=== PATIENT | male | born 1960 | race Caucasian/White ===

== ENCOUNTER 2018-12-31 13:11 | Inpatient (IN) ==
[2018-12-31] MEDS: NS 1,000 ML IV SCH (17:55)
[2018-12-31] MEDS: LOVENOX SUBQ SCH (17:55)
[2018-12-31] MEDS: NORCO-5 PO PRN ×2 (17:55→22:58)
[2018-12-31] MEDS: GLUCOPHAGE PO SCH (17:55)
--- NOTE | 2018-12-31 18:35 | Diag Imaging Result Doc PS360 ---
CHEST-PORTABLE - 12/31/2018 INDICATION: non healing ulcer COMPARISON: 11/25/2016 FINDINGS: Lung volumes are low with bibasilar crowding. No infiltrates or edema. No pneumothorax or pleural effusion. Heart size is normal. IMPRESSION: No acute disease. Low lung volumes. Electronically signed by Farhad Helm 12/31/2018 6:33 PM
[2018-12-31] MEDS: ZOSYN 3.375 GM in NS 50 ML IV SCH ×2 (18:50→23:00)
[2018-12-31 19:08] LABS: AGAP 8; BUN 6 mg/dL (8-22); CALCIUM 8.5 mg/dL (8.8-10.2); CHLORIDE 94 mmol/L (98-107); COSMO 271; CREATININE 0.8 mg/dL (0.7-1.2); ESTIMATED GFR > 60; GLUCOSE 323 mg/dL (70-104); POTASSIUM 3.5 mmol/L (3.5-5.1); SODIUM 130 mmol/L (136-145); TCO2 28 mmol/L (25-35)
[2018-12-31 19:09] LABS: BASO# 0.07 X1000 (0.0-0.2); BASO% 0.7 % (0.0-0.8); EOS# 0.22 X1000 (0.0-0.7); EOS% 2.1 % (0.0-10.0); HEMATOCRIT 38.3 % (42.0-52.0); HEMOGLOBIN 12.4 g/dL (14.0-18.0); IMM GRAN# 0.04 X1000 (0.0-0.04); IMM GRAN% 0.4 % (0.0-0.5); LYMPH# 2.88 X1000 (1.2-3.4); LYMPH% 26.9 % (20.5-51.1); MCH 29.9 PG (27-31); MCHC 32.4 g/dL (33-37); MCV 92.3 FL (81-99); MONO# 0.76 X1000 (0.11-0.59); MONO% 7.1 % (1.7-9.3); MPV 9.4 FL (7.4-10.4); NEUT# 6.73 X1000 (1.4-6.5); NEUT% 62.8 % (42.2-75.2); PLT 352 X1000 (130-400); RBC 4.15 XMIL (4.7-6.1)
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
--- NOTE | 2018-12-31 19:57 | EKG Report ---
Test Performed on : 12/31/2018 6:00:38 PM Test Reason : non healing ulcer Blood Pressure : / mmHG Vent. Rate : 063 BPM Atrial Rate : 063 BPM P-R Int : 140 ms QRS Dur : 088 ms QT Int : 448 ms P-R-T Axes : 072 021 043 degrees QTc Int : 458 ms Sinus rhythm. with occasional premature ventricular complexes. Low voltage QRS Borderline ECG When compared with ECG of 25-NOV-2016 14:18, premature ventricular complexes. are now present Criteria for Septal infarct are no longer present Nonspecific T wave abnormality no longer evident in Anterolateral leads Unconfirmed Result
[2018-12-31] MEDS: HUMALOG SUBQ SCH (20:55)
[2019-01-01] MEDS: ZOSYN 3.375 GM in NS 50 ML IV SCH ×4 (04:46→22:26)
[2019-01-01] MEDS: PRILOSEC PO SCH ×2 (05:44→06:34)
[2019-01-01] MEDS: NS 1,000 ML IV SCH ×3 (06:18→22:26)
[2019-01-01] MEDS: HUMALOG SUBQ SCH ×4 (06:34→22:26)
[2019-01-01] MEDS ORDERED: INSULIN PEN NEEDLES ONE (06:52)
--- NOTE | 2019-01-01 07:15 | PROGRESS NOTE ---
DATE: 01/01/2019 SUBJECTIVE: Mr. Dickey admitted with nonhealing ulcer on the right leg with some infection around it and uncontrolled diabetes mellitus. The patient does have some chills and neuropathic pain in the feet. The patient has long-standing diabetes. The patient claims to have diarrhea. At times, fecal and urinary incontinence. No nausea or vomiting. He does have chronic cough. No unusual expectoration. No typical chest pain. OBJECTIVE: His vital signs are noted.Neck: Supple. No JVD. Lungs: Bilateral good air entry present. CVS: S1 and S2 heard. Abdomen: Soft, nontender. Bowel sounds present. Extremities: Patient does have ulcer right leg medial aspect with some slough in the medial aspect. Other ulcer on the left leg. Patient has multiple superficial ulcers on the upper back. ACADEMIC SUPPORT COORDINATOR: Alert, awake and able to move all 4 limbs. LABORATORY DATA: Admission lab data noted which did reveal normal WBC count but left shift. Electrolytes did reveal hyponatremia. Potassium was low-normal. ASSESSMENT AND PLAN: I started patient on antibiotics. We are going to get arterial Doppler done. Also, we will get stool workup. Check sedimentation rate and C-reactive protein for chronic inflammation. After reviewing the results, we will make further recommendations. His other problems includes hyperlipidemia gastritis, and reflux disease. Peripheral neuropathy and diarrhea. PLAN: 1. Overall plan discussed with the patient. 2. Tobacco abuse. Encourage patient to quit smoking. cc: Harinder Worley MD
[2019-01-01 07:25] LABS: FREE T4 1.11 ng/dL (0.93-1.70); TSH 3.99 uIUmL (0.27-4.20)
[2019-01-01] MEDS: NORCO-5 PO PRN ×2 (08:12→17:07)
[2019-01-01] MEDS: NEURONTIN PO SCH ×3 (08:14→17:07)
[2019-01-01] MEDS: GLUCOPHAGE PO SCH ×2 (08:14→17:07)
[2019-01-01] MEDS: VITAMIN D PO SCH (08:14)
[2019-01-01] MEDS: SINGULAIR PO SCH (08:14)
[2019-01-01] MEDS: TRESIBA FLEXTOUCH U-100 SUBQ SCH (08:15)
[2019-01-01 08:26] LABS: URINE SOURCE CLEAN CATCH
[2019-01-01 08:36] LABS: BILIRUBIN URINE NEGATIVE (NEGATIVE); BLOOD URINE NEGATIVE (NEGATIVE); COLOR STRAW; GLUCOSE URINE NEGATIVE (NEGATIVE); KETONE URINE NEGATIVE (NEGATIVE); LEUKOCYTES URINE NEGATIVE (NEGATIVE); NITRITE URINE NEGATIVE (NEGATIVE); PH URINE 6.5; PROTEIN URINE NEGATIVE (NEGATIVE); SP GRAVITY URINE 1.012; TURBIDITY URINE CLEAR (CLEAR); UROBILINOGEN URINE NORMAL (NORMAL)
[2019-01-01 08:37] LABS: UR EPITHELIAL CELLS <10 /HPF (<10); URINE BACTERIA NEGATIVE /HPF; URINE RBC <10 /HPF (<10); URINE WBC <10 /HPF (<10)
[2019-01-01] MEDS ORDERED: TRESIBA FLEXTOUCH U-100 SUBQ SCH (09:00)
[2019-01-01 09:41] LABS: HEMOGLOBIN A1C 9.4 % (4.8-6.0)
[2019-01-01] MEDS: LOVENOX SUBQ SCH (17:06)
[2019-01-02] MEDS: ZOSYN 3.375 GM in NS 50 ML IV SCH ×5 (00:16→23:09)
[2019-01-02] MEDS: NORCO-5 PO PRN ×4 (03:47→23:09)
--- NOTE | 2019-01-02 07:11 | PROGRESS NOTE ---
DATE: 01/02/2019 SUBJECTIVE: Mr. Dickey is doing better. Wound on the leg seems to be healing. The redness around the ulcer is less. No high-grade fever or chills. No nausea or vomiting. Complaining of scrotal pain, heaviness. Does have chronic cough. OBJECTIVE: His vital signs are noted. Neck is supple. No JVD. The patient does have a nonhealing ulcer on the back. Lungs: Bilateral good air entry present. CVS: S1 and S2 heard. Abdomen: Soft, nontender. Bowel sounds present. Extremities: No cyanosis, clubbing. No acute DVT. CHILDHOOD DEVELOPMENT TEACHER: Alert, awake. Able to move all 4 limbs. Examination of the scrotum normal. No excoriation or rash. Testicular exam was benign but with a history of heaviness and his age, I am going to get ultrasound to make sure no underlying lesion. I am going to try Silvadene cream on his ulcer. We will follow results of arterial Doppler. cc: Harinder Worley MD
[2019-01-02] MEDS: TRESIBA FLEXTOUCH U-100 SUBQ SCH (08:20)
--- NOTE | 2019-01-02 08:20 | Diag Imaging Result Doc PS360 ---
EXAM: US SCROTUM INDICATION: testicular pain TECHNIQUE: COMPARISON: None. FINDINGS: The testicles are grossly normal in echotexture with no discrete testicular mass or cyst. Both testicles exhibit normal Doppler flow. The right testicle measures 4.7 cm and the left testicle measures 4.6 cm in the greatest dimensions. There is a 3 mm left epididymal cyst. The epididymides are grossly unremarkable, otherwise. There are small bilateral hydroceles. IMPRESSION: Small bilateral hydroceles. Essentially unremarkable scrotal ultrasound, otherwise. Electronically signed by Vasyl Summers 01/02/2019 8:17 AM
[2019-01-02] MEDS: NEURONTIN PO SCH ×3 (08:21→16:32)
[2019-01-02] MEDS: GLUCOPHAGE PO SCH ×2 (08:21→16:20)
[2019-01-02] MEDS: VITAMIN D PO SCH (08:21)
[2019-01-02] MEDS: SINGULAIR PO SCH (08:21)
[2019-01-02] MEDS: PRILOSEC PO SCH (08:23)
[2019-01-02] MEDS: SSD CREAM TOP SCH ×2 (09:55→23:10)
[2019-01-02] MEDS: HUMALOG SUBQ SCH ×3 (10:45→23:10)
[2019-01-02 13:17] LABS: HEPATITIS PROFILE ACUTE SEE COMMENTS
--- NOTE | 2019-01-02 15:18 | GENERAL SURGERY CONSULTATION ---
DATE: 01/02/2019 HISTORY OF PRESENT ILLNESS: Mr. Dickey is a pleasant, 58-year-old gentleman who was admitted on Monday the because of ulcers on his right ankle and left ankle. He has known peripheral vascular disease. He also has known diabetes and known coronary artery disease. He reports his feet being cold frequently or often. He also reports bilateral leg claudication with worsening symptoms on the right than the left. He says he can only walk about a half a block before his legs give out. He denies any chest pain. He denies any stroke symptoms. PAST MEDICAL HISTORY: His past history is pertinent for insulin-requiring diabetes, coronary artery disease, post angioplasty and stent, history of chronic low back pain, and gastritis. PAST MEDICAL HISTORY: This previous surgery includes his coronary stent. HOME MEDICATIONS: Include Neurontin, Prilosec, tramadol, Glucophage XR, Tresiba, and doxycycline. Apparently, he also takes Humalog insulin possibly. ALLERGIES: He is allergic to NSAIDs. FAMILY HISTORY: Pertinent for diabetes and heart disease. SOCIAL HISTORY: He does smoke a pack per day. He is single. He denies alcohol or substance abuse. He is disabled. REVIEW OF SYSTEMS: Negative on the 10 subsystems except as noted above. PHYSICAL EXAMINATION: Vital Signs: He is afebrile. Heart rate 62, blood pressure 150/77. No cervical adenopathy. No carotid bruits are heard. Lungs: Bilateral breath sounds. Heart: Irregular rate and rhythm. Abdomen: Soft and nontender. No aneurysms palpated. There is a left femoral pulse but no right femoral pulse. There are no pedal pulses. Ulcerations are noted on the right medial ankle and the left anterior ankle. His feet are somewhat chilled. He is awake, alert, and oriented. LABORATORY DATA: White count 10,700, hemoglobin 12.4. BUN 6, creatinine 0.8, glucoses are in the 200 to 300 range. ASSESSMENT: This man certainly has peripheral vascular disease. His ankle-brachial indices are about in the 0.[address] scan of the abdomen done in July showed an occluded right iliac, occluded bilateral superficial femoral arteries. There was no runoff imaging done so I do not know what that would show. PLAN: My recommendation would be to do a CTA with runoff to look at his peripheral vessels. He will certainly need a femorofemoral bypass, followed by some femoral to distal bypass to heal the ulcer on the right ankle and allow him once again to walk. Since he has had his lower extremity arterial study, we will go and get a CTA with runoff. cc: MD Harinder Dorantes MD
[2019-01-02] MEDS: LOVENOX SUBQ SCH (16:31)
--- NOTE | 2019-01-02 20:46 | Diag Imaging Result Doc PS360 ---
EXAM: CT ANGIOGRAM AORTA W/RUNOFF - 01/02/2019 HISTORY: Ischemic ulcers of feet TECHNIQUE: CT angiogram aorta with runoff with intravenous contrast. Axial, MPR, and 3-D MIP images are obtained. COMPARISON: None. FINDINGS: There are atheromatous changes in the aorta and bilateral iliac arteries. There is moderate stenosis at the proximal right common iliac artery. There is tight stenosis at the distal right common iliac artery. There is occlusion of the proximal right external iliac artery. The right common femoral and proximal superficial femoral artery are occluded. There is reconstitution at the more distal portion of the proximal right superficial femoral artery, with generally tight stenosis. There is moderate stenosis at the right distal superficial femoral and popliteal arteries. There is primarily two-vessel lower leg runoff on the right consisting of the anterior and posterior tibial arteries. The right anterior tibial artery is generally small caliber, there are focal calcified plaques with substantial stenosis along the right posterior tibial artery. There is mild stenosis of the left common iliac artery. There is mild to moderate stenosis along the left external iliac artery. There is moderate stenosis of the left common femoral artery. The left superficial femoral artery is occluded at or just distal to its origin. There is reconstitution at the distal left superficial femoral artery, which is there is apparent stenosis from mild to relatively tight. There is mild to moderate stenosis of the left popliteal artery, with moderate to tight stenosis at the left popliteal trifurcation. There is initially three vessel lower leg runoff on the left, but only the left posterior tibial arteries visible to the ankle. There are multiple atherosclerotic plaques with areas of stenosis along the proximal and mid left posterior tibial artery There are multiple pancreatic calcifications noted which suggests chronic pancreatitis. There are bilateral renal cysts. There is a large amount retained fecal debris in colon and rectum suggesting constipation. The stomach is distended with debris, but this could relate to recent meal. IMPRESSION: Extensive atherosclerotic disease, as detailed above. The right external iliac and portions of the bilateral superficial femoral arteries are occluded. There is atherosclerotic disease with varying stenoses at the reconstituted distal superficial femoral arteries and popliteal arteries bilaterally. The posterior tibial arteries appear to be the primary lower leg runoff vessels bilaterally, but they contain multiple calcified plaques. Electronically signed by Bharat Candelario 01/02/2019 8:43 PM
[2019-01-03] MEDS: PRILOSEC PO SCH (06:17)
[2019-01-03] MEDS: ZOSYN 3.375 GM in NS 50 ML IV SCH ×2 (06:18→12:20)
[2019-01-03] MEDS: HUMALOG SUBQ SCH ×2 (06:20→14:14)
[2019-01-03 06:41] LABS: BASO# 0.06 X1000 (0.0-0.2); BASO% 0.6 % (0.0-0.8); EOS# 0.35 X1000 (0.0-0.7); EOS% 3.6 % (0.0-10.0); HEMATOCRIT 35.9 % (42.0-52.0); HEMOGLOBIN 11.7 g/dL (14.0-18.0); IMM GRAN# 0.04 X1000 (0.0-0.04); IMM GRAN% 0.4 % (0.0-0.5); LYMPH# 2.75 X1000 (1.2-3.4); LYMPH% 28.6 % (20.5-51.1); MCH 30.1 PG (27-31); MCHC 32.6 g/dL (33-37); MCV 92.3 FL (81-99); MONO% 7.3 % (1.7-9.3); MPV 9.4 FL (7.4-10.4); NEUT# 5.71 X1000 (1.4-6.5); NEUT% 59.5 % (42.2-75.2); PLT 350 X1000 (130-400); RBC 3.89 XMIL (4.7-6.1); WBC 9.61 X1000 (4.8-10.8)
[2019-01-03 07:39] LABS: AGAP 11; ALB/GLOB RATIO 1.1; ALBUMIN 3.5 g/dL (3.5-5.0); ALKALINE PHOSPHATASE 91 U/L (32-122); BUN 7 mg/dL (8-22); CALCIUM 8.7 mg/dL (8.8-10.2); CHLORIDE 96 mmol/L (98-107); COSMO 275; CREATININE 0.9 mg/dL (0.7-1.2); ESTIMATED GFR > 60; GLUCOSE 190 mg/dL (70-104); GOT 16 U/L (10-34); GPT 14 U/L (10-44); POTASSIUM 3.8 mmol/L (3.5-5.1); SODIUM 136 mmol/L (136-145); TCO2 29 mmol/L (25-35); TOTAL BILIRUBIN < 0.15 mg/dL (0.20-1.00); TOTAL PROTEIN 6.7 g/dL (6.3-8.3)
--- NOTE | 2019-01-03 08:45 | PROGRESS NOTE ---
DATE: 01/03/2019 SUBJECTIVE: Mr. Dickey is doing fair. No high-grade fever or chills. The patient claims he was not able to rest well last night. He does have mild cough. No expectoration. No nausea or vomiting. No diarrhea, blood, or mucus in the stool. Appreciate Dr. Correia's help managing patient. CTA with runoff results reviewed. The patient does have diffuse disease bilaterally. I started patient on Pletal. Ulcer on the leg seems to be healing. OBJECTIVE: Vital signs noted.Neck: Supple. No JVD. The lungs with bilateral good air entry present. CVS: S1 and S2 heard. Abdomen: Soft, nontender. Bowel sounds present. MANGLE CATCHER: Alert, awake, and able to move all 4 limbs. PROBLEMS: 1. Patient's problems includes ulcer on both the legs seems to be doing better. We will continue antibiotics. 2. Significant peripheral vascular disease. We will discuss with Dr. Correia further treatment intervention. Meanwhile, start the patient on Pletal. Discussed medical management. Encourage patient to quit smoking completely. 3. Proper control of diabetes hypertension and lipids discussed with the patient. Other problem includes diabetes mellitus. 4. Hyperlipidemia. 5. The patient preferred to have surgery after Thanksgiving if he needs one. I will discuss with Dr. Correia, and then will make further recommendations. CBC done today. Results reviewed. If clinical condition permits, we will discharge patient home today with follow up with me and Dr. Correia as an outpatient. cc: Harinder Worley MD
[2019-01-03] MEDS ORDERED: PLETAL PO SCH (09:00)
[2019-01-03] MEDS ORDERED: TRESIBA FLEXTOUCH U-100 SUBQ SCH (09:00)
[2019-01-03] MEDS: NEURONTIN PO SCH ×2 (09:45→12:20)
[2019-01-03] MEDS: GLUCOPHAGE PO SCH (09:45)
[2019-01-03] MEDS: SINGULAIR PO SCH (09:45)
[2019-01-03] MEDS: VITAMIN D PO SCH (09:52)
[2019-01-03 11:31] VITALS: BP 149/77
[2019-01-03] MEDS: SSD CREAM TOP SCH (13:58)
--- NOTE | 2019-01-03 16:06 | GENERAL SURGERY PROGRESS NOTE ---
DATE: 01/03/2019 SUBJECTIVE: Mr. Dickey will need possible left iliac stent, a femoral-femoral bypass, and then intervention to his SFA. This may be amenable to atherectomy versus bypass; I am not certain what will be required, but he chooses to wait for now and I have asked him to come back and see me after Thanksgiving. He wants to wait until after Thanksgiving in order to have any operative intervention. So, he will need to see me in the office after that, after which we will set up his intervention. I have encouraged him to not smoke. Thanks for the opportunity to see him. cc: MD Harinder Dorantes MD
--- NOTE | 2019-01-03 17:53 | VASCULAR LAB ---
PROCEDURE NAME: Arterial Bilateral Legs - 01/01/2019 REFERRING PHYSICIAN: Dr. Worley. INDICATIONS: Bilateral lower extremity claudication and also ulcerations bilaterally, lower extremities. The patient is a diabetic and smokes. FINDINGS: Systolic brachial blood pressure on the right is 148 mmHg, on the left 146 mmHg. Right high thigh 107 mmHg, left high thigh 135 mmHg. Right low thigh 97 mmHg, left low thigh 77 mmHg. Right calf 81 mmHg, left calf 78 mmHg. Right ankle is 80 mmHg, left ankle is 84 mmHg. At rest the right ankle-brachial index is 0.56, left ankle-brachial index is 0.57. The patient does have pulse waveforms involving both lower extremities to the feet but they are diminished below the knee. INTERPRETATION: Possible right aortoiliac disease and also bilateral femoral popliteal arterial disease which is severe enough to cause claudication symptoms. cc: MD Harinder Jimenez MD
[2019-01-03] MEDS ORDERED: LIPITOR PO SCH (21:00)
--- NOTE | 2019-01-03 22:08 | Extremity Venous Study ---
PROCEDURE NAME: Vein Mapping Right GSV - 01/03/2019 REFERRING PHYSICIAN: Socrates Correia MD READING PHYSICIAN: Aryan Cunningham MD QA DEVELOPER: Edward. INDICATION: Preop evaluation for arterial bypass. FINDINGS: The right greater saphenous vein was imaged throughout its course. It is compressible, patent without thrombus from proximal to distal in the thigh to the ankle level. It measures 5.1, 3.0, 3.5, 3.6, 3.3, 2.3, 2.3 and 2.9 mm. INTERPRETATION: This is an apparently adequate greater saphenous vein for revascularization. cc: MD Socrates Olmedo MD Bharat K. Vakharia, MD
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
== END 2019-01-03 14:30 | disposition home or self-care (01) | DRG 594 ==
LOC: DIRADM 13:11 → 4N 14:47
PROVIDERS: ADMIT Internal Medicine; ATTEND Internal Medicine

== ENCOUNTER 2019-03-27 05:10 | Inpatient (IN) ==
--- NOTE | 2019-03-20 14:19 | EKG Report ---
Test Performed on : 03/20/2019 2:13:18 PM Test Reason : PAT Blood Pressure : / mmHG Vent. Rate : 095 BPM Atrial Rate : 095 BPM P-R Int : 150 ms QRS Dur : 084 ms QT Int : 392 ms P-R-T Axes : 074 045 099 degrees QTc Int : 492 ms Normal sinus rhythm. Prolonged QT Abnormal ECG When compared with ECG of 31-DEC-2018 18:00, premature ventricular complexes. are no longer present Vent. rate has increased BY 32 BPM Nonspecific T wave abnormality now evident in Lateral leads Confirmed by Nitish LOREDO, Vinicio Toussaint ([id number]) on 03/21/2019 2:35:22 PM
[2019-03-20 14:31] LABS: HEMATOCRIT 38.2 % (42.0-52.0); HEMOGLOBIN 12.4 g/dL (14.0-18.0); MCHC 32.5 g/dL (33-37); MCV 95.5 FL (81-99); MPV 9.4 FL (7.4-10.4); RDW 13.8 % (11.5-14.5); WBC 9.35 X1000 (4.8-10.8)
[2019-03-20 14:50] LABS: AGAP 12; BUN 9 mg/dL (8-22); CALCIUM 8.8 mg/dL (8.8-10.2); CHLORIDE 100 mmol/L (98-107); COSMO 283; CREATININE 0.8 mg/dL (0.7-1.2); ESTIMATED GFR > 60; GLUCOSE 357 mg/dL (70-104); POTASSIUM 4.4 mmol/L (3.5-5.1); SODIUM 135 mmol/L (136-145); TCO2 23 mmol/L (25-35)
[2019-03-27] MEDS ORDERED: REGLAN ONE (05:40)
[2019-03-27] MEDS ORDERED: KEFZOL 1 GM/D5W 2 GM/100 ML IVPB ONE (05:40)
[2019-03-27] MEDS ORDERED: PEPCID ONE (05:40)
[2019-03-27] MEDS ORDERED: LR 1,000 ML ONE (05:40)
[2019-03-27] MEDS ORDERED: QUELICIN (DOSE) ONE (06:19)
[2019-03-27] MEDS ORDERED: ZEMURON ONE ×2 (06:19→07:22)
[2019-03-27] MEDS ORDERED: XYLOCAINE-MPF 2% ONE (06:19)
[2019-03-27] MEDS ORDERED: DIPRIVAN 1% ONE (06:30)
[2019-03-27] MEDS ORDERED: FENTANYL ONE (06:32)
[2019-03-27] MEDS ORDERED: NEO-SYNEPHRINE ONE (06:33)
[2019-03-27] MEDS ORDERED: SENSORCAINE 0.25%/EPI 1:200,000 ONE (06:49)
[2019-03-27] MEDS ORDERED: KEFZOL ONE (06:49)
[2019-03-27] MEDS ORDERED: NS 1,000 ML ONE ×2 (06:50→11:16)
[2019-03-27] MEDS ORDERED: PAPAVERINE ONE (06:50)
[2019-03-27] MEDS ORDERED: HEPARIN ONE ×3 (06:50→06:53)
[2019-03-27] MEDS ORDERED: ALBUMIN 25% ONE (07:10)
[2019-03-27] MEDS ORDERED: HEPARIN (DOSE) ONE (07:36)
[2019-03-27 07:54] LABS: URINE SOURCE CATH
[2019-03-27 08:03] LABS: BILIRUBIN URINE NEGATIVE (NEGATIVE); BLOOD URINE NEGATIVE (NEGATIVE); COLOR YELLOW; GLUCOSE URINE NEGATIVE (NEGATIVE); KETONE URINE NEGATIVE (NEGATIVE); LEUKOCYTES URINE NEGATIVE (NEGATIVE); NITRITE URINE NEGATIVE (NEGATIVE); PROTEIN URINE NEGATIVE (NEGATIVE); SP GRAVITY URINE 1.014; TURBIDITY URINE CLEAR (CLEAR); UR EPITHELIAL CELLS <10 /HPF (<10); URINE BACTERIA NEGATIVE /HPF; URINE WBC <10 /HPF (<10); UROBILINOGEN URINE NORMAL (NORMAL)
[2019-03-27] MEDS ORDERED: NEOSTIGMINE ONE (10:00)
[2019-03-27] MEDS ORDERED: ROBINUL ONE (10:01)
[2019-03-27] MEDS: DILAUDID ONE ×4 (10:38→10:53)
--- NOTE | 2019-03-27 10:52 | OPERATIVE NOTE ---
PROCEDURE DATE: 03/27/2019 PROCEDURES PERFORMED: 1. Open left iliac arteriogram. 2. Femoral-femoral bypass. 3. Right common femoral endarterectomy. 4. Right superficial femoral artery atherectomy with balloon angioplasty. 5. Ligation of the right superficial femoral artery. SURGEON: Socrates Correia M.D. PYROMETALLURGICAL ENGINEER: Shaun Hilton. PREOPERATIVE DIAGNOSIS: Right severe atherosclerosis with right leg rest pain. POSTOPERATIVE DIAGNOSIS: Right severe atherosclerosis with right leg rest pain, with right common femoral, deep femoral, superficial femoral artery occlusion. FINDINGS: The left iliac was very diseased, but acceptable, and we did not have to treat the left iliac based on the arteriogram. The common femoral was completely occluded. There was no back bleeding from the SFA or the deep femoral, so these were both occluded. We did have the complication of a perforation of the SFA after atherectomy, requiring ligation. DESCRIPTION OF PROCEDURE: Satisfactory general endotracheal anesthesia was achieved. The abdomen, right leg, and left groin were prepped and draped in a sterile fashion. An Ioban drape was used. We made a vertical incision in the left groin, dissected down to the common femoral artery, surrounded at the inguinal ligament with an umbilical tape, and more distally with a vessel loop. We used a Seldinger technique to puncture the artery, and passed a wire, followed by a 6-Icelandic sheath. We then shot a retrograde iliac arteriogram, and this showed a quite diseased common and external iliac, but it was patent. We chose not to intervene because of what appeared to be adequate intraluminal flow. I then made a vertical incision in the right groin, and dissected down to the common femoral. There was no pulse in the right common femoral. We surrounded the proximal vessel loops, and profunda was surround with 2 vessel loops because it had early branching, and the SFA was surrounded as well. Small branches were surrounded with 2-0 silks. We attempted to access the common femoral, but we could not find a lumen, so I dissected more distally to expose more superficial femoral. I did find some lumen, and was able to pass a 6- Icelandic sheath. We then shot an arteriogram of the SFA, and there was an occlusion with some collateralization, and we then were able to pass a wire and a Trailblazer and get into the normal lumen distally, so because we did that, we switched to an 0.014 wire, and used an LS atherectomy catheter to treat the SFA. In the proximal portion of the SFA, there was a significant amount of plaque. We did balloon it with a 4 x 4 balloon, but there appeared to be some extravasation. I failed to mention that we did give the patient 5000 units of heparin. We went ahead and did our femoral anastomosis on the left using an 8 mm Hemashield graft, suturing it to the left common femoral. We then clamped flow to the graft, and left flandreau flow to the left leg. We then decided on the right side that we would dissect further down on the SFA to see if we could actually incorporate a long segment into our right femoral anastomosis, but it became evident that this would not work because of the perforation in the artery posteriorly. At this point, I decided to just do a femoral anastomosis and simply ligate the SFA. We did do an endarterectomy of the common femoral, and after doing that, we did get good back bleeding from the deep femoral artery. After ligating the SFA just past the bifurcation of the common femoral, we then constructed the anastomosis of the graft to the common femoral, with outflow being the newly opened deep femoral artery. This was done with a 5-0 Prolene stitch, and we got no clot when we flushed, and then we finished the anastomosis, and good flow was established. We completed a femoral-femoral bypass, a right common femoral endarterectomy with outflow into the deep femoral. The SFA was not salvageable due to the perforation, and so we simply ligated it to prevent further bleeding from it. At this point, we had been operating for some time and lost about 1000 mL of blood, so I chose not to pursue any further bypass and simply to see if re-perfusing his deep femoral on the right would carry him adequately, at least for a while. We could come back at a later time and do a distal bypass if felt necessary. We irrigated out the wounds with Kefzol- impregnated saline. We then closed the wounds with two layers of 3-0 Polysorb, either running or interrupted, and then closed the skin with shaquille. Sterile dressings were applied. He tolerated it well. Estimated blood loss was 1000 mL. We used 79 mL of contrast. cc: Socrates Correia MD
[2019-03-27] MEDS: NS 1,000 ML IV SCH ×2 (11:53→21:17)
[2019-03-27] MEDS: DILAUDID IV PRN ×2 (12:11→15:05)
[2019-03-27] MEDS: NEURONTIN PO SCH ×2 (12:12→17:07)
[2019-03-27] MEDS ORDERED: PNEUMOVAX 23 IM ONE (14:00)
[2019-03-27] MEDS ORDERED: INSULIN PEN NEEDLES ONE (14:19)
[2019-03-27] MEDS: KEFZOL 1 GM in NS 50 ML IV SCH ×2 (15:02→23:37)
[2019-03-27] MEDS: ZOFRAN IV PRN (15:05)
[2019-03-27] MEDS: NORCO-10 PO PRN ×2 (17:20→21:15)
--- NOTE | 2019-03-27 20:16 | GENERAL SURGERY PROGRESS NOTE ---
DATE: 03/27/2019 SUBJECTIVE: Mr. Dickey seems comfortable. OBJECTIVE: His bandages appear dry. His right leg is warm. PLAN: We will advance his diet, check his sugars. We will recheck his labs in the morning. cc: Socrates Correia MD
[2019-03-27] MEDS: PLETAL PO SCH (21:15)
[2019-03-27] MEDS: PERIDEX MT SCH (21:15)
[2019-03-27] MEDS: GLUCOPHAGE PO SCH (21:16)
[2019-03-27] MEDS: LIPITOR PO SCH (21:17)
[2019-03-28] MEDS: NORCO-10 PO PRN ×3 (04:35→14:29)
[2019-03-28] MEDS: PRILOSEC PO SCH ×2 (04:36→07:58)
[2019-03-28 07:32] LABS: BASO# 0.03 X1000 (0.0-0.2); BASO% 0.2 % (0.0-0.8); EOS# 0.08 X1000 (0.0-0.7); EOS% 0.5 % (0.0-10.0); HEMOGLOBIN 9.4 g/dL (14.0-18.0); LYMPH# 3.01 X1000 (1.2-3.4); MCH 29.9 PG (27-31); MCHC 32.4 g/dL (33-37); MCV 92.4 FL (81-99); MONO% 6.6 % (1.7-9.3); MPV 9.9 FL (7.4-10.4); NEUT% 74.7 % (42.2-75.2); PLT 188 X1000 (130-400); RBC 3.14 XMIL (4.7-6.1); RDW 14.7 % (11.5-14.5); WBC 16.72 X1000 (4.8-10.8)
[2019-03-28 07:51] LABS: AGAP 8; BUN 7 mg/dL (8-22); CHLORIDE 100 mmol/L (98-107); COSMO 274; CREATININE 0.7 mg/dL (0.7-1.2); ESTIMATED GFR > 60; GLUCOSE 172 mg/dL (70-104); SODIUM 136 mmol/L (136-145); TCO2 28 mmol/L (25-35)
[2019-03-28] MEDS: KEFZOL 1 GM in NS 50 ML IV SCH ×3 (08:32→22:05)
[2019-03-28] MEDS: VITAMIN D PO SCH (08:35)
[2019-03-28] MEDS: NEURONTIN PO SCH ×3 (08:35→21:48)
[2019-03-28] MEDS: NS 1,000 ML IV SCH (08:35)
[2019-03-28] MEDS: PERIDEX MT SCH ×2 (08:35→20:11)
[2019-03-28] MEDS: ASPIRIN PO SCH (08:35)
[2019-03-28] MEDS: PLETAL PO SCH ×2 (08:35→20:11)
[2019-03-28] MEDS: TRESIBA U SUBQ SCH (08:36)
[2019-03-28] MEDS: DILAUDID IV PRN ×3 (10:37→19:30)
[2019-03-28] MEDS ORDERED: NS 1,000 ML IV SCH (15:30)
--- NOTE | 2019-03-28 15:33 | GENERAL SURGERY PROGRESS NOTE ---
DATE: 03/28/2019 Mr. Dickey says he can tell a difference in his right leg and foot. It is warmer. He is afebrile. Heart rate 89, blood pressure 124/66. White count today 16,700, hemoglobin 9.4, hematocrit 29. Chemistry is okay. Sugar is about 199. The plan is to take his Arellano out, cut his IV rate down, and get him up in a chair. cc: Socrates Correia MD
[2019-03-28] MEDS: LIPITOR PO SCH (20:11)
[2019-03-28] MEDS: GLUCOPHAGE PO SCH (20:12)
[2019-03-29] MEDS: KEFZOL 1 GM in NS 50 ML IV SCH ×3 (01:49→17:23)
[2019-03-29] MEDS: DILAUDID IV PRN (07:06)
[2019-03-29] MEDS: PRILOSEC PO SCH (07:06)
[2019-03-29] MEDS: VITAMIN D PO SCH (08:40)
[2019-03-29] MEDS: PLETAL PO SCH ×2 (08:40→21:14)
[2019-03-29] MEDS: ASPIRIN PO SCH (08:40)
[2019-03-29] MEDS: PERIDEX MT SCH ×2 (08:41→21:13)
[2019-03-29] MEDS: TRESIBA U SUBQ SCH (08:41)
[2019-03-29] MEDS: NEURONTIN PO SCH ×3 (10:00→17:31)
[2019-03-29] MEDS ORDERED: SALINE LOCK IV FLUID XX ONE (11:07)
[2019-03-29] MEDS: ZOFRAN IV PRN (11:55)
--- NOTE | 2019-03-29 14:43 | GENERAL SURGERY PROGRESS NOTE ---
DATE: 03/29/2019 SUBJECTIVE: He is without fever. His hemodynamics are okay. His heart rate is a little bit elevated. He has no one at home. OBJECTIVE: His wounds are fine, oozing just a little bit. His legs are warm. PLAN: The plan will be to seek rehab placement for him since he has no one at home. I will recheck his labs in the morning. cc: Socrates Correia MD
--- NOTE | 2019-03-29 16:33 | Diag Imaging Result Doc PS360 ---
CHEST-1 VIEW - 03/29/2019 INDICATION: rehab placement COMPARISON: 12/31/2018 FINDINGS: There has been increase in hazy interstitial infiltrates in the lung bases bilaterally. This is nonspecific, consistent with either pulmonary edema or atypical pneumonia. Heart size is top normal. No pneumothorax or pleural effusion. IMPRESSION: Increasing nonspecific interstitial infiltrates in the lung bases. Electronically signed by Farhad Helm 03/29/2019 4:30 PM
[2019-03-29] MEDS: GLUCOPHAGE PO SCH (21:13)
[2019-03-29] MEDS: LIPITOR PO SCH (21:14)
[2019-03-30] MEDS: KEFZOL 1 GM in NS 50 ML IV SCH ×3 (02:44→17:30)
[2019-03-30] MEDS: PRILOSEC PO SCH ×2 (06:09→11:40)
[2019-03-30 07:46] LABS: BASO# 0.04 X1000 (0.0-0.2); BASO% 0.3 % (0.0-0.8); EOS% 0.6 % (0.0-10.0); HEMATOCRIT 25.3 % (42.0-52.0); HEMOGLOBIN 8.3 g/dL (14.0-18.0); LYMPH# 2.43 X1000 (1.2-3.4); LYMPH% 15.5 % (20.5-51.1); MCH 30.7 PG (27-31); MCHC 32.8 g/dL (33-37); MCV 93.7 FL (81-99); MONO# 1.06 X1000 (0.11-0.59); MONO% 6.8 % (1.7-9.3); MPV 10.3 FL (7.4-10.4); NEUT# 12.06 X1000 (1.4-6.5); NEUT% 76.8 % (42.2-75.2); PLT 186 X1000 (130-400); RDW 13.9 % (11.5-14.5); WBC 15.69 X1000 (4.8-10.8)
[2019-03-30 08:24] LABS: AGAP 10; BUN 14 mg/dL (8-22); CHLORIDE 99 mmol/L (98-107); COSMO 274; CREATININE 0.6 mg/dL (0.7-1.2); ESTIMATED GFR > 60; GLUCOSE 135 mg/dL (70-104); POTASSIUM 3.8 mmol/L (3.5-5.1); SODIUM 136 mmol/L (136-145); TCO2 27 mmol/L (25-35)
--- NOTE | 2019-03-30 10:17 | GENERAL SURGERY PROGRESS NOTE ---
DATE: 03/30/2019 He is now postop day 3 with fem-fem bypass. He is afebrile. Heart rate 98, blood pressure 138/77. He says he is eating. He says his bowels have moved. He is voiding satisfactorily. Intake 720, [place] [address], hemoglobin 8.3, hematocrit 25. Chemistry is fine. Sugars are in the 100 range. PLAN: To seek rehab placement if possible. cc: Socrates Correia MD
[2019-03-30] MEDS: NEURONTIN PO SCH ×3 (11:41→21:05)
[2019-03-30] MEDS: ASPIRIN PO SCH (11:41)
[2019-03-30] MEDS: PLETAL PO SCH ×2 (11:42→20:27)
[2019-03-30] MEDS: VITAMIN D PO SCH (11:42)
[2019-03-30] MEDS: PERIDEX MT SCH ×2 (11:43→20:27)
[2019-03-30] MEDS: GLUCOPHAGE PO SCH (20:26)
[2019-03-30] MEDS: LIPITOR PO SCH (20:27)
[2019-03-30] MEDS: TRESIBA U SUBQ SCH (21:04)
[2019-03-31] MEDS: KEFZOL 1 GM in NS 50 ML IV SCH ×3 (01:09→16:42)
[2019-03-31] MEDS: NORCO-10 PO PRN ×4 (01:09→20:39)
[2019-03-31] MEDS: ZOFRAN IV PRN (01:09)
[2019-03-31] MEDS: PRILOSEC PO SCH (06:09)
--- NOTE | 2019-03-31 07:04 | GENERAL SURGERY PROGRESS NOTE ---
DATE: 03/31/2019 He is afebrile, heart rate 93, blood pressure 114/65. He is more cooperative today. He is eating. His legs are warm. His wounds are fine. We will check his white count today. He is encouraged to get up and walk some, and sit in a chair. We are awaiting rehab placement. cc: Socrates Correia MD
[2019-03-31 08:16] LABS: BASO# 0.03 X1000 (0.0-0.2); BASO% 0.2 % (0.0-0.8); EOS# 0.14 X1000 (0.0-0.7); EOS% 1.2 % (0.0-10.0); HEMATOCRIT 26.4 % (42.0-52.0); HEMOGLOBIN 8.3 g/dL (14.0-18.0); IMM GRAN# 0.04 X1000 (0.0-0.04); IMM GRAN% 0.3 % (0.0-0.5); LYMPH# 2.24 X1000 (1.2-3.4); LYMPH% 18.5 % (20.5-51.1); MCH 29.3 PG (27-31); MCHC 31.4 g/dL (33-37); MCV 93.3 FL (81-99); MONO# 0.93 X1000 (0.11-0.59); MONO% 7.7 % (1.7-9.3); MPV 10.3 FL (7.4-10.4); NEUT# 8.75 X1000 (1.4-6.5); NEUT% 72.1 % (42.2-75.2); PLT 236 X1000 (130-400); RBC 2.83 XMIL (4.7-6.1); RDW 13.5 % (11.5-14.5); WBC 12.13 X1000 (4.8-10.8)
[2019-03-31] MEDS: PLETAL PO SCH ×2 (09:57→20:33)
[2019-03-31] MEDS: PERIDEX MT SCH ×2 (09:57→20:33)
[2019-03-31] MEDS: ASPIRIN PO SCH (09:57)
[2019-03-31] MEDS: NEURONTIN PO SCH ×3 (09:57→16:33)
[2019-03-31] MEDS: TRESIBA U SUBQ SCH (09:57)
[2019-03-31] MEDS: VITAMIN D PO SCH (10:00)
[2019-03-31] MEDS: HUMULIN R SUBQ SCH ×2 (18:13→23:32)
[2019-03-31] MEDS: LIPITOR PO SCH (20:33)
[2019-03-31] MEDS: GLUCOPHAGE PO SCH (20:34)
[2019-04-01] MEDS: KEFZOL 1 GM in NS 50 ML IV SCH ×2 (01:11→09:20)
[2019-04-01] MEDS: PRILOSEC PO SCH (06:57)
[2019-04-01] MEDS: HUMULIN R SUBQ SCH ×3 (06:57→23:26)
[2019-04-01] MEDS: ASPIRIN PO SCH (09:20)
[2019-04-01] MEDS: VITAMIN D PO SCH (09:20)
[2019-04-01] MEDS: PERIDEX MT SCH ×2 (09:20→21:12)
[2019-04-01] MEDS: PLETAL PO SCH ×2 (09:20→21:11)
[2019-04-01] MEDS: NORCO-10 PO PRN ×3 (09:21→19:02)
[2019-04-01] MEDS: NEURONTIN PO SCH ×3 (09:21→21:11)
[2019-04-01] MEDS: TRESIBA U SUBQ SCH (09:22)
--- NOTE | 2019-04-01 10:06 | GENERAL SURGERY PROGRESS NOTE ---
DATE: 04/01/2019 Mr. Dickey is afebrile. He is sitting up in a chair. His wounds look good. His feet are warm. Sugar is better, down to 107 and 83. We are awaiting rehab placement. cc: Socrates Correia MD
[2019-04-01] MEDS: GLUCOPHAGE PO SCH (21:11)
[2019-04-01] MEDS: LIPITOR PO SCH (21:12)
[2019-04-02] MEDS: NORCO-10 PO PRN (03:18)
[2019-04-02] MEDS: PRILOSEC PO SCH (06:36)
[2019-04-02] MEDS: HUMULIN R SUBQ SCH (06:59)
--- NOTE | 2019-04-02 07:28 | DISCHARGE SUMMARY ---
ADMISSION DATE: 03/27/2019 DISCHARGE DATE: 04/02/2019 PRIMARY DISCHARGE DIAGNOSES: 1. Rest pain, right lower extremity with iliac and superficial femoral artery occlusion. 2. Mcv-tmicves-ehtjzayvj type 2 diabetes mellitus. PRIMARY PROCEDURE: A left iliac arteriogram, femoral-femoral bypass, right common femoral endarterectomy, right superficial artery atherectomy, and finally ligation of the right superficial femoral artery. HOSPITAL COURSE: Mr. Dickey is a 59-year-old who has severe peripheral vascular disease, complaining about right leg pain at rest. He was admitted and underwent the intervention as noted above. Postoperatively, his right leg was much warmer and he felt much better. His postoperative course was primarily revolving around control of his sugar. We did maintain him on Kefzol to protect his wounds. By the 4th he was wound his pain is controlled. His leg was legs were adequately perfused and he was improved as far as his right leg discomfort. It was felt he could be discharged. DISPOSITION: We felt that rehab would be appropriate since he lives alone, so that was arranged. He will resume his usual medications. He will return to the office in 9 days for staple removal. He is to follow up with Dr. Worley as well. cc: Socrates Correia MD
[2019-04-02 07:54] VITALS: BP 91/66
--- NOTE | 2019-04-02 08:07 | GENERAL SURGERY PROGRESS NOTE ---
DATE: 04/02/2019 Mr. Dickey is sitting up. He is doing well. His wounds are fine. He is ready for transfer to rehab. Will resume his usual medicines that he came in on, including his hypoglycemic medication. He will return to see me in the office in 9 to 10 days for staple removal. cc: Socrates Correia MD
== END 2019-04-02 10:13 | DRG 271 ==
LOC: SURHOLD 05:10 → 4N 10:21
PROVIDERS: ADMIT Surgery; ATTEND Surgery